=== PATIENT | female | born 1995 | race Caucasian/White ===

== ENCOUNTER → 2019-10-01 | Outpatient (CLI) | payer OTHER ==
[2019-10-05 15:38] LABS: HERPES SIMPLEX VIRUS-1 BY PCR Negative (Negative); HERPES SIMPLEX VIRUS-2 BY PCR Negative (Negative)
== END | disposition home or self-care (01) ==
LOC: PUC 13:03
DX: N98.9 Complication associated with artificial fertilization, unspecified (principal)
CPT/HCPCS: 87255; 87491; 87529; 87591

== ENCOUNTER 2020-06-20 05:11 | Emergency (ER) | payer OTHER ==
[~2020-06-20] VITALS: Ht 160 cm; Wt 95.5 kg
[2020-06-20] MEDS ORDERED: SODIUM CHLORIDE 0.9% 1,000 ML IV ONE ×3 (05:45→08:30)
[2020-06-20] MEDS ORDERED: ONDANSETRON HCL 4 MG/2 ML VIAL IVP ONE (05:45)
[2020-06-20] MEDS ORDERED: ACETAMINOPHEN 500 MG TABLET PO ONE (06:15)
[2020-06-20 06:20] LABS: APPEARANCE,URINE CLOUDY (CLEAR); BILIRUBIN,URINE NEGATIVE (NEGATIVE); GLUCOSE, URINE (UA) NEGATIVE (NEGATIVE); KETONES,URINE 15 mg/dL (NEGATIVE); LEUKOCYTE ESTERASE ,URINE SMALL (NEGATIVE); NITRATE,URINE NEGATIVE (NEGATIVE); OCCULT BLOOD,URINE NEGATIVE (NEGATIVE); PH,URINE 6.5 (5.0-8.0); PROTEIN,URINE NEGATIVE (NEGATIVE)
[2020-06-20 06:22] LABS: BASOPHILS % (AUTO) 0.1 % (0.0-2.0); EOSINOPHILS % (AUTO) 0 % (1.0-6.0); HEMATOCRIT 48.3 % (36-46); HEMOGLOBIN 16.4 g/dL (12.0-16.0); LYMPHOCYTES # (AUTO) 1.1 K/uL (1.0-4.8); LYMPHOCYTES % (AUTO) 13.6 % (22.0-44.0); MEAN CORPUSCULAR HEMOGLOBIN 28.7 pg (26.0-34.0); MEAN CORPUSCULAR HGB CONC 33.8 G/dL (31.0-37.0); MEAN CORPUSCULAR VOLUME 85 fL (80-100); MONOCYTES # (AUTO) 0.4 K/uL (0.1-1.0); MONOCYTES % (AUTO) 4.3 % (2.0-9.0); NEUTROPHILS # (AUTO) 6.8 K/uL (1.8-7.7); PLATELET COUNT (AUTO) 234 K/uL (150-450); RED BLOOD CELL COUNT(AUTO) 5.69 MIL/uL (4.00-5.20); RED CELL DISTRIBUTION WIDTH 13.7 % (11.5-14.5)
[2020-06-20 06:29] LABS: ANION GAP 9 mmol/L (8-16); CALCIUM, TOTAL 8.4 mg/dL (8.8-10.5); CARBON DIOXIDE 26 mmol/L (22-29); CHLORIDE 97 mmol/L (98-107); CREATININE 1.19 mg/dL (0.60-1.30); GLOMERULAR FILTR. RATE CALC 55 mL/min (>60); GLUCOSE,RANDOM 119 mg/dL (70-110); POTASSIUM 3.2 mmol/L (3.5-5.1); SODIUM SERUM 132 mmol/L (136-145); UREA NITROGEN, BLOOD 8 mg/dL (7-18)
[2020-06-20 06:33] LABS: COVID AG,FIA SOURCE NASOPHARYNGEAL
[2020-06-20 06:34] LABS: RBC,URINE 0-2 /HPF (0-2)
[2020-06-20 06:35] LABS: BACTERIA,URINE Rare /HPF (None Seen); SQUAMOUS EPITHELIAL CELL,UR Moderate /LPF (None Seen)
[2020-06-20 06:50] LABS: ALANINE AMINOTRANSFERASE 42 U/L (12-78); ALBUMIN 3.8 g/dL (3.4-5.0); ALKALINE PHOSPHATASE 93 U/L (46-116); ASPARTATE AMINOTRANSFERASE 29 U/L (15-37); BILIRUBIN,TOTAL 0.3 mg/dL (0.1-1.0); HCG,QUANTITATIVE < 1 mIU/mL (0-6); LIPASE 122 U/L (73-393); TOTAL PROTEIN, SERUM 8.7 g/dL (6.4-8.2)
[2020-06-20] MEDS ORDERED: POTASSIUM CHLORIDE 20 MEQ ER TABLET PO ONE (07:00)
[2020-06-20 07:09] LABS: INFLUENZA TYPE A NEGATIVE FOR TYPE A (NEGATIVE); INFLUENZA TYPE B NEGATIVE FOR TYPE B (NEGATIVE)
[2020-06-20] MEDS ORDERED: DiphenhydrAMINE HCL 50 MG/ML VIAL IVP ONE (07:30)
[2020-06-20] MEDS ORDERED: KETOROLAC TROMETHAMINE 30 MG/ML VIAL IVP ONE (07:30)
[2020-06-20] MEDS ORDERED: DEXAMETHASONE SOD PHOS 4 MG/ML 5 ML VIAL IVP ONE (07:30)
[2020-06-20] MEDS ORDERED: METOCLOPRAMIDE HCL 5 MG/ML 2 ML VIAL IVP ONE (07:30)
[2020-06-20 09:24] VITALS: BP 117/64
== END 2020-06-20 09:57 | disposition home or self-care (01) ==
LOC: EMS 05:16
DX: U07.1 COVID-19 (principal); R11.2 Nausea with vomiting, unspecified; R51.9 Headache, unspecified
CPT/HCPCS: 36415; 71045; 80053; 81001; 83690; 84702; 84703; 85025; 87070; 87426; 87804; 96361; 96374; 96375; 99285; J1100; J1200; J1885; J2405; J2765; J7030; U0003